=== PATIENT | female | born 1970 | race Caucasian/White ===

== ENCOUNTER 2017-12-18 00:58 | Inpatient (IN) | payer BC ==
[2017-12-18 01:13] LABS: URINE HCG POC HCG NEGATIVE (Negative)
[2017-12-18 01:22] LABS: BILIRUBIN,URINE LARGE (NEG); CLARITY,URINE TURBID; COLOR,URINE RED; GLUCOSE,URINE 100 mg/dL (NEG); NITRITE,URINE POSITIVE (NEG); PROTEIN,URINE 100 mg/dL (NEG-TRACE)
[2017-12-18 01:31] LABS: BACTERIA,URINE MANY /HPF (0-FEW); RBC,URINE TNTC /HPF (0-2); SQUAMOUS EPITHELIAL CELL,UR MOD /LPF
[2017-12-18 01:48] LABS: ADD MAN DIFF? NO
[2017-12-18] MEDS ORDERED: KETOROLAC 30 MG/ML INJ. (01:51)
[2017-12-18 01:56] LABS: BASO # 0.1 x10^3/uL (0.0-0.2); BASO % 1 % (0-3); EOS # 0.3 x10^3/uL (0.0-0.7); EOS % 4 % (0-3); HEMATOCRIT 40.1 % (36.0-47.0); HEMOGLOBIN 14.2 g/dL (12.0-15.5); LYMPH # 4.4 x10^3/uL (1.0-4.8); LYMPH % 50 % (24-48); MEAN CORPUSCULAR HEMOGLOBIN 34 pg (25-35); MEAN CORPUSCULAR HGB CONC 35 g/dL (31-37); MEAN CORPUSCULAR VOLUME 97 fL (79-100); MONO # 0.6 x10^3/uL (0.0-1.1); MONO % 7 % (0-9); NEUT # 3.4 x10^3uL (1.8-7.7); NEUT % 39 % (31-73); PLATELET COUNT 237 x10^3/uL (140-400); RED BLOOD COUNT 4.15 x10^6/uL (3.50-5.40); RED CELL DISTRIBUTION WIDTH 13.4 % (11.5-14.5); WHITE BLOOD COUNT 8.8 x10^3/uL (4.0-11.0)
[2017-12-18 01:58] LABS: ANION GAP 12 (6-14); BLOOD UREA NITROGEN 15 mg/dL (7-20); CALCIUM 9.3 mg/dL (8.5-10.1); CARBON DIOXIDE 25 mmol/L (21-32); CHLORIDE 103 mmol/L (98-107); CREATININE 0.8 mg/dL (0.6-1.0); GFR 77.6; GLUCOSE 191 mg/dL (70-99); POTASSIUM 4.2 mmol/L (3.5-5.1); SODIUM 140 mmol/L (136-145)
[2017-12-18] MEDS: KETOROLAC 30 MG/ML INJ. IV (01:58)
[2017-12-18] MEDS: IV NORMAL SALINE 1000ML BAG 1,000 ML IV ×2 (01:58→04:30)
[2017-12-18] MEDS: MORPHINE SULFATE 4 MG/ML DISP.SYRIN. IV ×7 (03:15→23:08)
[2017-12-18] MEDS: TAMSULOSIN 0.4 MG CAP.ER.24H. PO (04:28)
[2017-12-18] MEDS: ONDANSETRON PF 4 MG/2 ML VIAL. IV ×2 (04:29→23:10)
[2017-12-18] MEDS: ACETAMINOPHEN 325 MG TABLET. PO ×2 (10:19→20:40)
[2017-12-18] MEDS: HYDROcodone/APAP 5/325MG 1 TAB TABLET PO ×2 (13:09→18:30)
[2017-12-18] MEDS: CHOLECALCIFEROL (VITAMIN D3) 1,000 UNIT TABLET PO (13:09)
[2017-12-18] MEDS ORDERED: DEXTROSE 50% 25 GM / 50ML DISP.SYRIN. IV (13:15)
[2017-12-18 16:58] LABS: POC GLUCOSE 78 mg/dL (70-99)
[2017-12-18] MEDS: INSULIN LISPRO 300 UNITS/3 ML INSULN.PEN. SQ (17:00)
[2017-12-18] MEDS: LACTOBACILLUS RHAMNOSUS GG 1 CAPSULE. PO (20:36)
[2017-12-18] MEDS: ZOLPIDEM 5 MG TABLET. PO (20:36)
[2017-12-18 21:53] LABS: POC GLUCOSE 83 mg/dL (70-99)
[2017-12-19] MEDS: HYDROcodone/APAP 5/325MG 1 TAB TABLET PO (03:02)
[2017-12-19] MEDS ORDERED: NON FORMULARY ITEM (Albuterol Sulfate (Albuterol Sulfate Conc Neb Soln) 1 VIAL) NEB (03:15)
[2017-12-19] MEDS ORDERED: ALBUTEROL SULFATE 2.5 MG/3 ML NEBU. NEB (03:30)
[2017-12-19 04:23] LABS: ADD MAN DIFF? NO
[2017-12-19 04:30] LABS: BASO % 1 % (0-3); EOS # 0.3 x10^3/uL (0.0-0.7); EOS % 4 % (0-3); HEMATOCRIT 35.6 % (36.0-47.0); HEMOGLOBIN 12.8 g/dL (12.0-15.5); LYMPH # 3.2 x10^3/uL (1.0-4.8); LYMPH % 43 % (24-48); MEAN CORPUSCULAR HEMOGLOBIN 35 pg (25-35); MEAN CORPUSCULAR HGB CONC 36 g/dL (31-37); MEAN CORPUSCULAR VOLUME 96 fL (79-100); MONO # 0.7 x10^3/uL (0.0-1.1); MONO % 9 % (0-9); NEUT # 3.3 x10^3uL (1.8-7.7); NEUT % 44 % (31-73); PLATELET COUNT 192 x10^3/uL (140-400); RED BLOOD COUNT 3.69 x10^6/uL (3.50-5.40); RED CELL DISTRIBUTION WIDTH 13.4 % (11.5-14.5); WHITE BLOOD COUNT 7.6 x10^3/uL (4.0-11.0)
[2017-12-19 04:54] LABS: ALBUMIN 3.2 g/dL (3.4-5.0); ALK PHOS 42 U/L (46-116); ALT (SGPT) 37 U/L (14-59); ANION GAP 10 (6-14); AST (SGOT) 36 U/L (15-37); BLOOD UREA NITROGEN 11 mg/dL (7-20); BUN/CREATININE RATIO 16 (6-20); CALCIUM 8.2 mg/dL (8.5-10.1); CARBON DIOXIDE 26 mmol/L (21-32); CHLORIDE 103 mmol/L (98-107); CREATININE 0.7 mg/dL (0.6-1.0); GFR 90.5; GLUCOSE 101 mg/dL (70-99); POTASSIUM 3.6 mmol/L (3.5-5.1); SODIUM 139 mmol/L (136-145); TOTAL BILIRUBIN 0.6 mg/dL (0.2-1.0); TOTAL PROTEIN 6.4 g/dL (6.4-8.2)
[2017-12-19] MEDS: cefTRIAXone IV Push 1 GM VIAL. IVP (05:15)
[2017-12-19] MEDS: ACETAMINOPHEN 325 MG TABLET. PO (05:26)
[2017-12-19] MEDS ORDERED: ONDANSETRON PF 4 MG/2 ML VIAL. IV (05:30)
[2017-12-19 07:46] LABS: POC GLUCOSE 100 mg/dL (70-99)
[2017-12-19] MEDS: INSULIN LISPRO 300 UNITS/3 ML INSULN.PEN. SQ (08:00)
[2017-12-19] MEDS: CHOLECALCIFEROL (VITAMIN D3) 1,000 UNIT TABLET PO (08:19)
[2017-12-19] MEDS: LACTOBACILLUS RHAMNOSUS GG 1 CAPSULE. PO (08:19)
== END 2017-12-19 11:52 | disposition home or self-care (01) | DRG 694 ==
LOC: ER 00:58 → 4 NORTH 04:15
DX: N13.2 Hydronephrosis with renal and ureteral calculous obstruction (principal); Z68.42 Body mass index [BMI] 45.0-49.9, adult; K50.90 Crohn's disease, unspecified, without complications; M35.2 Behcet's disease; E03.9 Hypothyroidism, unspecified; N39.0 Urinary tract infection, site not specified; J45.909 Unspecified asthma, uncomplicated; K21.9 Gastro-esophageal reflux disease without esophagitis; F41.9 Anxiety disorder, unspecified; E66.01 Morbid (severe) obesity due to excess calories; E11.42 Type 2 diabetes mellitus with diabetic polyneuropathy; E28.2 Polycystic ovarian syndrome; M54.5 Low back pain; Z83.3 Family history of diabetes mellitus; Z87.11 Personal history of peptic ulcer disease; Z87.442 Personal history of urinary calculi; Z88.5 Allergy status to narcotic agent; Z88.8 Allergy status to other drugs, medicaments and biological substances; Z88.1 Allergy status to other antibiotic agents; Z91.040 Latex allergy status; Z86.2 Personal history of diseases of the blood and blood-forming organs and certain disorders involving the immune mechanism; Z80.9 Family history of malignant neoplasm, unspecified
CPT/HCPCS: 36415; 74018; 74176; 80048; 80053; 81001; 81025; 82962; 85025; 87086; 94640; 96361; 96365; 99285-25; J0690; J0696; J1815; J1885; J2270; J2405; J7030

== ENCOUNTER 2018-09-06 09:21 | Emergency (ER) | payer BC ==
[~2018-09-06] VITALS: Ht 154.9 cm; Wt 122.5 kg
[~2018-09-06 09:21] MED LIST: ADAL40PE SQ; ALBU2.5V14 NEB; ALBU2.5V5 NEB; AZAT50TA PO; AZAT50TA20 PO; CHOL10003 PO; DOCU-109 PO; ESZO3TAB28 PO; HYDR-2769 PO; HYDR-3164 PO; LEVO500T59 PO; LIDO20SO PO; LIDO20VI IJ; MULT9LIQ6 PO; PANT40TA3 PO; PANT40TA5 PO; PRED-220 PO; PRED1TAB3 PO; PRED2.5T PO; PRED20TA PO; SUCR1TAB35 PO; ZOLP5TAB PO; ZOLP5TAB5 PO
[2018-09-06] MEDS ORDERED: MORPHINE SULFATE 4 MG/ML VIAL. IV ONE (10:15)
[2018-09-06] MEDS ORDERED: ONDANSETRON PF 4 MG/2 ML VIAL. IV ONE (10:15)
[2018-09-06 10:32] LABS: BILIRUBIN,URINE NEGATIVE (NEG); CLARITY,URINE CLEAR; COLOR,URINE YELLOW; NITRITE,URINE NEGATIVE (NEG); PROTEIN,URINE NEGATIVE (NEG-TRACE); UROBILINOGEN,URINE 0.2 mg/dL (0.2 mg/dL)
[2018-09-06 10:40] LABS: BASO # 0.1 x10^3/uL (0.0-0.2); BASO % 1 % (0-3); EOS # 0.3 x10^3/uL (0.0-0.7); EOS % 4 % (0-3); HEMATOCRIT 39.3 % (36.0-47.0); HEMOGLOBIN 13.8 g/dL (12.0-15.5); LYMPH # 3.4 x10^3/uL (1.0-4.8); LYMPH % 47 % (24-48); MEAN CORPUSCULAR HEMOGLOBIN 35 pg (25-35); MEAN CORPUSCULAR HGB CONC 35 g/dL (31-37); MEAN CORPUSCULAR VOLUME 98 fL (79-100); MONO # 0.6 x10^3/uL (0.0-1.1); MONO % 8 % (0-9); NEUT % 41 % (31-73); PLATELET COUNT 177 x10^3/uL (140-400); RED BLOOD COUNT 3.99 x10^6/uL (3.50-5.40); RED CELL DISTRIBUTION WIDTH 13.1 % (11.5-14.5); WHITE BLOOD COUNT 7.3 x10^3/uL (4.0-11.0)
[2018-09-06 10:43] LABS: CALCIUM 8.8 mg/dL (8.5-10.1); CREATININE 0.5 mg/dL (0.6-1.0); GFR 132.8; POTASSIUM 3.9 mmol/L (3.5-5.1)
[2018-09-06 10:48] LABS: ALBUMIN 3.8 g/dL (3.4-5.0); ALBUMIN/GLOBULIN RATIO 1.2 (1.0-1.7); TOTAL BILIRUBIN 0.4 mg/dL (0.2-1.0); TOTAL PROTEIN 7.1 g/dL (6.4-8.2)
[2018-09-06 10:58] LABS: SQUAMOUS EPITHELIAL CELL,UR MANY /LPF
[2018-09-06 10:59] LABS: BACTERIA,URINE MOD /HPF (0-FEW); RBC,URINE 0 /HPF (0-2)
--- NOTE | 2018-09-06 11:00 | PHYS DOC ---
Past Medical History Past Medical History: Asthma, Other Additional Past Medical Histor: Behcet's DISEASE, crohn's Past Surgical History: Other Additional Past Surgical Histo: TUBES IN EARS, KNEE Alcohol Use: Rarely Drug Use: None Adult General Chief Complaint Chief Complaint: FLANK PAIN HPI HPI Patient is a 48 year old feeling presents the ER for evaluation of hematuria and right flank pain. Patient with history of Behcet's disease. Reports frequent kidney stones over the past few months. Has also had some associated urinary tract infections. Reports some chronic right flank pain that is intermittent but increased over the last 24-48 hours. Reports understanding hematuria this morning. Subjective fever last night. No nausea, no vomiting, no diarrhea, no GI bleed symptoms. Has some chronic joint pain related to her Behcet's. Pain is constant, 6 out of 10, questionably positional, no other aggravating or alleviating factors. Review of Systems Review of Systems Constitutional: Denies fever or chills [] Eyes: Denies change in visual acuity, redness, or eye pain [] HENT: Denies nasal congestion or sore throat [] Respiratory: Denies cough or shortness of breath [] Cardiovascular: No additional information not addressed in HPI [] GI: Denies abdominal pain, nausea, vomiting, bloody stools or diarrhea [] : Denies dysuria or hematuria [] Musculoskeletal: Denies back pain or joint pain [] Integument: Denies rash or skin lesions [] Neurologic: Denies headache, focal weakness or sensory changes [] Endocrine: Denies polyuria or polydipsia [] All other systems were reviewed and found to be within normal limits, except as documented in this note. Current Medications Current Medications Current Medications Medications (Trade) Dose Ordered Sig/[place] Start Time Stop Time Status Last Admin Dose Admin Cephalexin HCl (Keflex) 500 mg 1X STAT 09/06/18 13:41 09/06/18 13:46 DC Morphine Sulfate (Morphine Sulfate) 4 mg 1X ONCE 09/06/18 10:15 09/06/18 10:16 DC 09/06/18 10:30 4 MG Ondansetron HCl (Zofran) 8 mg 1X ONCE 09/06/18 10:15 09/06/18 10:16 DC 09/06/18 10:22 8 MG Allergies Allergies Allergies Coded Allergies Type Severity Reaction Last Updated Verified meropenem Allergy Severe skin blisters 03/19/15 Yes Iodine and Iodide Containing Produc Allergy Intermediate 02/26/15 Yes erythromycin base Allergy Intermediate SEE COMMENT 02/18/15 Yes lactose Allergy Intermediate 02/25/15 Yes Physical Exam Physical Exam Constitutional: Obese, appears mildly uncomfortable. HENT: Normocephalic, atraumatic, Eyes: PERRLA, EOMI, Neck: Normal range of motion, no tenderness, supple, no stridor. [] Cardiovascular:Heart rate regular rhythm, no murmur [] Lungs & Thorax: Bilateral breath sounds clear to auscultation [] Abdomen: Exam limited by body habitus, soft, mild periumbilical tenderness, no guarding, no rebound tenderness. Skin: Warm, dry, no erythema, no rash. [] Back: Moderate right paraspinal tenderness in approximate T8 through T12 region , no CVA tenderness.. [] Extremities: No tenderness, no cyanosis, no clubbing, ROM intact, no edema. [] Neurologic: Alert and oriented X 3, no focal deficits noted. [] Psychologic: Affect normal, judgement normal, mood normal. [] Current Patient Data Vital Signs Vital Signs Date Time Temp Pulse Resp B/P (MAP) Pulse Ox O2 Delivery O2 Flow Rate FiO2 09/06/18 13:30 78 20 134/68 (90) 95 Room Air 09/06/18 09:45 97.6 97.6 Lab Values Laboratory Tests Test 09/06/18 09:40 09/06/18 10:10 09/06/18 11:20 Urine Collection Type Unknown Unknown Urine Color Yellow Yellow Urine Clarity Clear Clear Urine pH 5.0 5.0 Urine Specific [place] >=1.030 >=1.030 Urine Protein Negative mg/dL (NEG-TRACE) Negative mg/dL (NEG-TRACE) Urine Glucose (UA) Negative mg/dL (NEG) Negative mg/dL (NEG) Urine Ketones (Stick) Negative mg/dL (NEG) Negative mg/dL (NEG) Urine Blood Small (NEG) Negative (NEG) Urine Nitrite Negative (NEG) Negative (NEG) Urine Bilirubin Negative (NEG) Small (NEG) Urine Urobilinogen Dipstick 0.2 mg/dL (0.2 mg/dL) 0.2 mg/dL (0.2 mg/dL) Urine Leukocyte Esterase Negative (NEG) Negative (NEG) Urine RBC 0 /HPF (0-2) Occ /HPF (0-2) Urine WBC 1-4 /HPF (0-4) Occ /HPF (0-4) Urine Squamous Epithelial Cells Many /LPF Mod /LPF Urine Bacteria Mod /HPF (0-FEW) 0 /HPF (0-FEW) Urine Mucus Mod /LPF Mod /LPF White Blood Count 7.3 x10^3/uL (4.0-11.0) Red Blood Count 3.99 x10^6/uL (3.50-5.40) Hemoglobin 13.8 g/dL (12.0-15.5) Hematocrit 39.3 % (36.0-47.0) Mean Corpuscular Volume 98 fL (79-100) Mean Corpuscular Hemoglobin 35 pg (25-35) Mean Corpuscular Hemoglobin Concent 35 g/dL (31-37) Red Cell Distribution Width 13.1 % (11.5-14.5) Platelet Count 177 x10^3/uL (140-400) Neutrophils (%) (Auto) 41 % (31-73) Lymphocytes (%) (Auto) 47 % (24-48) Monocytes (%) (Auto) 8 % (0-9) Eosinophils (%) (Auto) 4 % (0-3) H Basophils (%) (Auto) 1 % (0-3) Neutrophils # (Auto) 3.0 x10^3uL (1.8-7.7) Lymphocytes # (Auto) 3.4 x10^3/uL (1.0-4.8) Monocytes # (Auto) 0.6 x10^3/uL (0.0-1.1) Eosinophils # (Auto) 0.3 x10^3/uL (0.0-0.7) Basophils # (Auto) 0.1 x10^3/uL (0.0-0.2) Sodium Level 141 mmol/L (136-145) Potassium Level 3.9 mmol/L (3.5-5.1) Chloride Level 103 mmol/L (98-107) Carbon Dioxide Level 27 mmol/L (21-32) Anion Gap 11 (6-14) Blood Urea Nitrogen 12 mg/dL (7-20) Creatinine 0.5 mg/dL (0.6-1.0) L Estimated GFR (Cockcroft-Gault) 132.8 BUN/Creatinine Ratio 24 (6-20) H Glucose Level 124 mg/dL (70-99) H Calcium Level 8.8 mg/dL (8.5-10.1) Total Bilirubin 0.4 mg/dL (0.2-1.0) Aspartate Amino Transferase (AST) 54 U/L (15-37) H Alanine Aminotransferase (ALT) 71 U/L (14-59) H Alkaline Phosphatase 44 U/L (46-116) L Total Protein 7.1 g/dL (6.4-8.2) Albumin 3.8 g/dL (3.4-5.0) Albumin/Globulin Ratio 1.2 (1.0-1.7) Lipase 123 U/L (73-393) Urine Amorphous Sediment Present /HPF Laboratory Tests 09/06/18 10:10 Laboratory Tests 09/06/18 10:10 EKG EKG [] Radiology/Procedures Radiology/Procedures CT ABD/pelvis Impression: Right adnexal follicle is physiologic in appearance. Small hiatal hernia. Nonobstructive right renal calculi. No collecting system obstruction. Diverticulosis. PQRS Compliance Statement: One or more of the following individualized dose reduction techniques were utilized for this examination: 1. Automated exposure control 2. Adjustment of the mA and/or kV according to patient size 3. Use of iterative reconstruction technique Electronically signed by: Everett Romero MD (09/06/2018 12:33 PM) [id number][] Course & Med Decision Making Course & Med Decision Making Pertinent Labs and Imaging studies reviewed. (See chart for details) []1340: Feeling better. Pain controlled. Initial urine sample was grossly contaminated. Repeat was a catheter specimen but due to allergies to Betadine was difficult to obtain a very clean specimen was also contaminated. Unclear if patient is having a urinary tract infection versus pyelonephritis. There are no obvious ureter stones with obstruction on the CAT scan. Will cover patient with a ten-day course of Keflex. Patient has pain medication to take at home. She is comfortable with plan for discharge. Advised completion of antibiotic course. ER return precautions given. Patient verbalized understanding. All questions answered. Dragon Disclaimer Dragon Disclaimer This electronic medical record was generated, in whole or in part, using a voice recognition dictation system. Departure Departure Impression: Primary Impression: Kidney stone Additional Impressions: Right flank pain Pyelonephritis Disposition: 01 HOME, SELF-CARE Condition: IMPROVED Referrals: KEILA HILTON (PCP) Patient Instructions: Pyelonephritis, Adult Additional Instructions: Thank you for coming to [facility]. Please read the attached handouts. Please follow-up with your primary care physician. Return to the ER if your symptoms worsen or you have any other concerns. Home medications. Take the entire course of antibiotics as prescribed. Scripts Cephalexin (KEFLEX) 500 Mg Capsule 1 CAP PO BID, #20 CAP Prov: SKYE HDEZ DO 09/06/18 Ciprofloxacin Hcl (CIPROFLOXACIN HCL) 500 Mg Tablet 1 TAB PO BID, #14 TAB Prov: SKYE HDEZ DO 09/06/18 Problem Qualifiers SKYE HDEZ DO Sep 06, 2018 11:00
[2018-09-06 11:32] LABS: BILIRUBIN,URINE SMALL (NEG); CLARITY,URINE CLEAR; COLOR,URINE YELLOW; NITRITE,URINE NEGATIVE (NEG); PROTEIN,URINE NEGATIVE (NEG-TRACE); UROBILINOGEN,URINE 0.2 mg/dL (0.2 mg/dL)
[2018-09-06 11:45] LABS: SQUAMOUS EPITHELIAL CELL,UR MOD /LPF
[2018-09-06 11:46] LABS: AMORPHOUS SEDIMENT,UR PRESENT /HPF; BACTERIA,URINE 0 /HPF (0-FEW); RBC,URINE OCC /HPF (0-2); WBC,URINE OCC /HPF (0-4)
--- NOTE | 2018-09-06 12:36 | RAD ---
Examination: CT ABDOMEN PELVIS WO CONTRAST History: RT FLANK PAIN, PRIOR SENT Comparison/Correlation: 11/18/2017 CT abdomen and pelvis without contrast Findings: Axial images of the abdomen and pelvis were obtained without contrast. Sagittal and coronal reformatted images were provided. Visualized lung bases are clear. Diffuse fatty infiltration of the liver with small regions of sparing noted. Small hiatal hernia is present. Spleen, pancreas, and adrenal glands are normal. Diverticulosis of the colon is present without findings of acute inflammation. Appendix is normal. Right renal lower pole calyceal calculus measuring 0.7 cm diameter is present. Punctate right renal lower pole calyceal calculus is also present. No radiopaque left renal cocci. No ureteral distention. Urinary bladder is mostly decompressed without radiopaque calculus involvement noted. No ascites or pelvic free fluid. No enlarged abdominal or pelvic lymph nodes. Umbilical hernia contains omental fat. Mild spurring at L4 S5 partially noted. Mild disc space narrowing is evident. Sacralization of the L5 vertebra noted. Right adnexal follicle measuring 2 cm diameter is present. It is physiologic in appearance. Uterus is unremarkable. Impression: Right adnexal follicle is physiologic in appearance. Small hiatal hernia. Nonobstructive right renal calculi. No collecting system obstruction. Diverticulosis. PQRS Compliance Statement: One or more of the following individualized dose reduction techniques were utilized for this examination: 1. Automated exposure control 2. Adjustment of the mA and/or kV according to patient size 3. Use of iterative reconstruction technique Electronically signed by: Everett Romero MD (09/06/2018 12:33 PM) [id number]
[2018-09-06 13:30] VITALS: BP 134/68
[2018-09-06] MEDS ORDERED: CIPR500T PO (13:40)
[2018-09-06] MEDS ORDERED: CEPH-264 PO (13:40)
[2018-09-06] MEDS ORDERED: CEPHALEXIN 250 MG CAPSULE. PO STA (13:41)
== END 2018-09-06 14:00 | disposition home or self-care (01) ==
LOC: ER 09:21
DX: N20.0 Calculus of kidney (principal); G89.29 Other chronic pain; K44.9 Diaphragmatic hernia without obstruction or gangrene; K57.30 Diverticulosis of large intestine without perforation or abscess without bleeding; J45.909 Unspecified asthma, uncomplicated; Z91.041 Radiographic dye allergy status; Z88.1 Allergy status to other antibiotic agents; Z91.011 Allergy to milk products; Z88.8 Allergy status to other drugs, medicaments and biological substances
CPT/HCPCS: 36415; 74176; 80053; 81001; 83690; 85025; 96374; 96375; 99285; J2270; J2405

== ENCOUNTER 2018-11-13 03:42 | Emergency (ER) | payer BC ==
[~2018-11-13] VITALS: Ht 154.9 cm; Wt 118.8 kg
[~2018-11-13 03:42] MED LIST changes: +CEPH-264 PO; +CIPR500T PO
[2018-11-13 04:25] LABS: BASO # 0.1 x10^3/uL (0.0-0.2); BASO % 1 % (0-3); EOS # 0.4 x10^3/uL (0.0-0.7); EOS % 4 % (0-3); HEMATOCRIT 37.8 % (36.0-47.0); HEMOGLOBIN 13.3 g/dL (12.0-15.5); LYMPH # 3.8 x10^3/uL (1.0-4.8); LYMPH % 37 % (24-48); MEAN CORPUSCULAR HEMOGLOBIN 34 pg (25-35); MEAN CORPUSCULAR HGB CONC 35 g/dL (31-37); MEAN CORPUSCULAR VOLUME 96 fL (79-100); MONO # 0.9 x10^3/uL (0.0-1.1); MONO % 9 % (0-9); NEUT % 49 % (31-73); PLATELET COUNT 182 x10^3/uL (140-400); RED BLOOD COUNT 3.93 x10^6/uL (3.50-5.40); WHITE BLOOD COUNT 10.3 x10^3/uL (4.0-11.0)
[2018-11-13 04:43] LABS: CALCIUM 9.3 mg/dL (8.5-10.1); CREATININE 0.6 mg/dL (0.6-1.0); GFR 107.6; POTASSIUM 3.9 mmol/L (3.5-5.1)
[2018-11-13] MEDS ORDERED: IPRATRPIUM/ALBUTEROL 0.5/2.5MG 3 ML NEBU. NEB ONE (04:45)
[2018-11-13] MEDS ORDERED: methylPREDNISolone SOD SUCC PF 125 MG/2 ML VIAL. IV ONE (04:45)
[2018-11-13 04:49] LABS: ALBUMIN 3.5 g/dL (3.4-5.0); TOTAL BILIRUBIN 0.3 mg/dL (0.2-1.0)
[2018-11-13] MEDS ORDERED: cefTRIAXone IV Push 1 GM VIAL. IVP ONE (06:00)
[2018-11-13] MEDS ORDERED: IV NORMAL SALINE 1000ML BAG 1,000 ML IV ONE (06:00)
[2018-11-13 06:02] LABS: BILIRUBIN,URINE NEGATIVE (NEG); CLARITY,URINE CLEAR; COLOR,URINE YELLOW; NITRITE,URINE NEGATIVE (NEG); PH,URINE 5.5; PROTEIN,URINE NEGATIVE (NEG-TRACE); UROBILINOGEN,URINE 0.2 mg/dL (0.2 mg/dL)
[2018-11-13 06:13] LABS: BACTERIA,URINE FEW /HPF (0-FEW); RBC,URINE OCC /HPF (0-2); SQUAMOUS EPITHELIAL CELL,UR FEW /LPF
--- NOTE | 2018-11-13 06:13 | PHYS DOC ---
Past Medical History Past Medical History: Asthma, Other Additional Past Medical Histor: Behcet's DISEASE, crohn's (MARICARMEN HERNANDEZ MD) Past Surgical History: Other Additional Past Surgical Histo: TUBES IN EARS, KNEE (MARICARMEN HERNANDEZ MD) Alcohol Use: Rarely Drug Use: None (MARICARMEN HERNANDEZ MD) Adult General Chief Complaint Chief Complaint: DIFFICULTY SWALLOWING HPI HPI Patient is a 48 year old female who presents with complaining of sore throat and shortness of breath. Patient complaining of gradual onset of sore throat and earache and shortness of breath for the last few days with chills and generalized weakness. Patient denies fever, neck pain, nausea and vomiting, sick contact, productive cough, chest pain. (MARICARMEN HERNANDEZ MD) Review of Systems Review of Systems Constitutional: Denies fever, reports chills [] Eyes: Denies change in visual acuity, redness, or eye pain [] HENT: Denies nasal congestion, reports sore throat and nasal congestion Respiratory: Reports cough and shortness of breath Cardiovascular: No additional information not addressed in HPI [] GI: Denies abdominal pain, nausea, vomiting, bloody stools or diarrhea [] : Denies dysuria or hematuria [] Musculoskeletal: Denies back pain or joint pain [] Integument: Denies rash or skin lesions [] Neurologic: Denies headache, focal weakness or sensory changes [] Endocrine: Denies polyuria or polydipsia [] All other systems were reviewed and found to be within normal limits, except as documented in this note. (MARICARMEN HERNANDEZ MD) Current Medications Current Medications Current Medications Medications (Trade) Dose Ordered Sig/[place] Start Time Stop Time Status Last Admin Dose Admin Albuterol/ Ipratropium (Duoneb) 3 ml 1X ONCE 11/13/18 04:45 11/13/18 04:46 DC 11/13/18 05:07 3 ML Ceftriaxone Sodium (Rocephin) 1 gm 1X ONCE 11/13/18 06:00 11/13/18 06:01 DC 11/13/18 06:00 1 GM Methylprednisolone Sodium Succinate (SOLU-Medrol 125MG VIAL) 125 mg 1X ONCE 11/13/18 04:45 11/13/18 04:46 DC 11/13/18 04:51 125 MG Sodium Chloride 1,000 ml @ 1,000 mls/hr 1X ONCE 11/13/18 06:00 11/13/18 06:59 DC 11/13/18 06:11 1,000 MLS/HR (JD HOUSTON DO) Allergies Allergies Allergies Coded Allergies Type Severity Reaction Last Updated Verified meropenem Allergy Severe skin blisters 03/19/15 Yes Iodine and Iodide Containing Produc Allergy Intermediate 02/26/15 Yes erythromycin base Allergy Intermediate SEE COMMENT 02/18/15 Yes lactose Allergy Intermediate 02/25/15 Yes (JD HOUSTON DO) Physical Exam Physical Exam Constitutional: Well developed, well nourished, mild distress, non-toxic appearance. [] HENT: Normocephalic, atraumatic, bilateral external ears normal, oropharynx moist, no oral exudates, nose normal. [] Eyes: PERRLA, EOMI, conjunctiva normal, no discharge. [] Neck: Normal range of motion, no tenderness, supple, no stridor. [] Cardiovascular:Heart rate regular rhythm, no murmur [] Lungs & Thorax: Bilateral breath sounds clear to auscultation [] Abdomen: Bowel sounds normal, soft, no tenderness, no masses, no pulsatile masses. [] Skin: Warm, dry, no erythema, no rash. [] Back: No tenderness, no CVA tenderness. [] Extremities: No tenderness, no cyanosis, no clubbing, ROM intact, no edema. [] Neurologic: Alert and oriented X 3, normal motor function, normal sensory function, no focal deficits noted. [] Psychologic: Affect normal, judgement normal, mood normal. [] (MARICARMEN HERNANDEZ MD) Current Patient Data Vital Signs Vital Signs Date Time Temp Pulse Resp B/P (MAP) Pulse Ox O2 Delivery O2 Flow Rate FiO2 11/13/18 06:25 91 16 151/91 (111) 95 Room Air 11/13/18 04:10 97.8 97.8 (JD HOUSTON DO) Lab Values Laboratory Tests Test 11/13/18 03:50 11/13/18 04:01 11/13/18 04:05 11/13/18 04:43 Urine Collection Type Unknown Urine Color Yellow Urine Clarity Clear Urine pH 5.5 Urine Specific [place] 1.025 Urine Protein Negative mg/dL (NEG-TRACE) Urine Glucose (UA) Negative mg/dL (NEG) Urine Ketones (Stick) Negative mg/dL (NEG) Urine Blood Negative (NEG) Urine Nitrite Negative (NEG) Urine Bilirubin Negative (NEG) Urine Urobilinogen Dipstick 0.2 mg/dL (0.2 mg/dL) Urine Leukocyte Esterase Negative (NEG) Urine RBC Occ /HPF (0-2) Urine WBC 1-4 /HPF (0-4) Urine Squamous Epithelial Cells Few /LPF Urine Bacteria Few /HPF (0-FEW) POC Urine HCG, Qualitative Hcg negative (Negative) White Blood Count 10.3 x10^3/uL (4.0-11.0) Red Blood Count 3.93 x10^6/uL (3.50-5.40) Hemoglobin 13.3 g/dL (12.0-15.5) Hematocrit 37.8 % (36.0-47.0) Mean Corpuscular Volume 96 fL (79-100) Mean Corpuscular Hemoglobin 34 pg (25-35) Mean Corpuscular Hemoglobin Concent 35 g/dL (31-37) Red Cell Distribution Width 13.0 % (11.5-14.5) Platelet Count 182 x10^3/uL (140-400) Neutrophils (%) (Auto) 49 % (31-73) Lymphocytes (%) (Auto) 37 % (24-48) Monocytes (%) (Auto) 9 % (0-9) Eosinophils (%) (Auto) 4 % (0-3) H Basophils (%) (Auto) 1 % (0-3) Neutrophils # (Auto) 5.0 x10^3uL (1.8-7.7) Lymphocytes # (Auto) 3.8 x10^3/uL (1.0-4.8) Monocytes # (Auto) 0.9 x10^3/uL (0.0-1.1) Eosinophils # (Auto) 0.4 x10^3/uL (0.0-0.7) Basophils # (Auto) 0.1 x10^3/uL (0.0-0.2) Sodium Level 137 mmol/L (136-145) Potassium Level 3.9 mmol/L (3.5-5.1) Chloride Level 100 mmol/L (98-107) Carbon Dioxide Level 25 mmol/L (21-32) Anion Gap 12 (6-14) Blood Urea Nitrogen 10 mg/dL (7-20) Creatinine 0.6 mg/dL (0.6-1.0) Estimated GFR (Cockcroft-Gault) 107.6 BUN/Creatinine Ratio 17 (6-20) Glucose Level 165 mg/dL (70-99) H Calcium Level 9.3 mg/dL (8.5-10.1) Total Bilirubin 0.3 mg/dL (0.2-1.0) Aspartate Amino Transferase (AST) 24 U/L (15-37) Alanine Aminotransferase (ALT) 38 U/L (14-59) Alkaline Phosphatase 50 U/L (46-116) Creatine Kinase 122 U/L (26-192) Troponin I Quantitative < 0.017 ng/mL (0.000-0.055) KX-Kbs-P-Type Natriuretic Peptide 30 pg/mL (0-124) Total Protein 7.0 g/dL (6.4-8.2) Albumin 3.5 g/dL (3.4-5.0) Albumin/Globulin Ratio 1.0 (1.0-1.7) Lactic Acid Level 2.7 mmol/L (0.4-2.0) H Group A Streptococcus Rapid Negative (NEGATIVE) Test 11/13/18 07:03 Lactic Acid Level 3.1 mmol/L (0.4-2.0) H Laboratory Tests 11/13/18 04:05 Laboratory Tests 11/13/18 04:05 (JD HOUSTON DO) EKG EKG [] (MARICARMEN HERNANDEZ MD) Radiology/Procedures Radiology/Procedures [] (MARICARMEN HERNANDEZ MD) Course & Med Decision Making Course & Med Decision Making Pertinent Labs and Imaging studies reviewed. (See chart for details) Evaluation of patient in ER showed 48-year-old female patient with history of as thma and complaining of URI symptoms. Patient had unremarkable physical exam and labs except for lactic acid of 2.7. Plan to repeat lactic acid in his normal discharge patient home. Sign out given to at 0600 for further evaluation and final disposition. Discussed current findings and plan with patient and family, who acknowledge understanding and agreement. (MARICARMEN HERNANDEZ MD) Course & Med Decision Making ED course: Evaluation reveals 48-year-old female with some URI symptoms. She was afebrile. She had a elevated lactic acid here however I don't think that this was related at all to sepsis. She was given IV fluids and felt much better duri ng her stay and wants to go home. I think she is safe to do so. I will start her on antibiotics as an outpatient. I've encouraged her to continue to push fluids at home. (JD HOUSTON DO) Dragon Disclaimer Dragon Disclaimer This electronic medical record was generated, in whole or in part, using a voice recognition dictation system. (MARICARMEN HERNANDEZ MD) Departure Departure Impression: Primary Impression: URI (upper respiratory infection) Disposition: 01 HOME, SELF-CARE Condition: IMPROVED Referrals: KEILA HILTON (PCP) Patient Instructions: Upper Respiratory Infection, Adult Additional Instructions: Follow with her primary care physician this week for recheck. Return him or sperm with any new or concerning symptoms Scripts Amoxicillin/Potassium Clav (AUGMENTIN 875-125 TABLET) 1 Each Tablet 1 TAB PO BID, #14 TAB Prov: JD HOUSTON DO 11/13/18 MARICARMEN HERNANDEZ MD Nov 13, 2018 06:13 JD HOUSTON DO Nov 13, 2018 08:47
--- NOTE | 2018-11-13 07:18 | EKG ---
[facility] [address] [place] [address] Test Date: 2018-11-13 Test Time: 04:43:09 Pat Name: APOLINAR MATHIS Department: Room: Gender: F President Practicing Urologist: : 1970 Requested By: MARICARMEN HERNANDEZ Order Number: [id number] Reading MD: Measurements Intervals [place] Rate: 94 P: 17 VA: 194 QRS: 27 QRSD: 78 T: 31 QT: 348 QTc: 441 Interpretive Statements SINUS RHYTHM NORMAL ECG RI6.01 Unconfirmed report No previous ECG available for comparison
--- NOTE | 2018-11-13 07:47 | RAD ---
EXAM: PA and Lateral Views of the Chest DATE: 11/13/2018 4:16 AM INDICATION: Shortness of breath COMPARISON: 01/26/2016 FINDINGS: Heart is mildly enlarged. Aorta is mildly tortuous. No lobar consolidation. Minimal patchy opacities right lung base, likely atelectasis. Mediastinal and hilar contours are stable. No pleural effusion or pneumothorax. IMPRESSION: Minimal patchy opacities right lung base likely atelectasis. Electronically signed by: Lorenzo Kaur MD (11/13/2018 7:44 AM) [facility]
[2018-11-13 08:25] VITALS: BP 171/106
[2018-11-13] MEDS ORDERED: AMOX1TAB61 PO (08:47)
== END 2018-11-13 08:57 | disposition home or self-care (01) ==
LOC: ER 03:42
DX: J06.9 Acute upper respiratory infection, unspecified (principal); R06.02 Shortness of breath; R53.1 Weakness; R05 Cough; J45.909 Unspecified asthma, uncomplicated; Z88.1 Allergy status to other antibiotic agents; Z88.8 Allergy status to other drugs, medicaments and biological substances; Z88.4 Allergy status to anesthetic agent; Z91.011 Allergy to milk products
CPT/HCPCS: 36415; 71046; 80053; 81001; 81025; 82550; 83605; 83880; 84484; 85025; 87040; 87070; 87205; 87880; 93005; 94640; 96374; 96375; 99285; J0696; J2930; J7030; J7620

== ENCOUNTER 2018-12-18 07:17 | Emergency (ER) | payer BC ==
[~2018-12-18] VITALS: Ht 154.9 cm; Wt 118.4 kg
[~2018-12-18 07:17] MED LIST changes: +AMOX1TAB61 PO; -PANT40TA3 PO; -PANT40TA5 PO; +PANT40TA77 PO
--- NOTE | 2018-12-18 07:32 | PHYS DOC ---
Past Medical History Past Medical History: Asthma, Other Additional Past Medical Histor: Behcet's DISEASE, crohn's Past Surgical History: Other Additional Past Surgical Histo: TUBES IN EARS, KNEE Alcohol Use: Rarely Drug Use: None Adult General Chief Complaint Chief Complaint: ABDOMINAL PAIN [facility] HPI Patient is a 48-year-old female with multiple medical problems including Crohn's disease and kidney stones. She states she was recently treated for diverticulitis with Cipro and Flagyl. She presents today with an acute onset of right lower quadrant pain. She had a CT scan done earlier this month which did show a 6 mm intra-renal stone. She has had some nausea associated with the pain. She is not taking any pain medicine at home to help with the pain. She describes the pain as at �10 out of 10 however while she sitting comfortably in the bed she states the pain is considerably less. She denies any gross hematuria. She does not think she's had any fever chills or sweats.[] Review of Systems Review of Systems Constitutional: Denies fever or chills [] Eyes: Denies change in visual acuity, redness, or eye pain [] HENT: Denies nasal congestion or sore throat [] Respiratory: Denies cough or shortness of breath [] Cardiovascular: No additional information not addressed in HPI [] GI: Per history of present illness[] : Denies dysuria or hematuria [] Musculoskeletal: Denies back pain or joint pain [] Integument: Denies rash or skin lesions [] Neurologic: Denies headache, focal weakness or sensory changes [] Endocrine: Denies polyuria or polydipsia [] All other systems were reviewed and found to be within normal limits, except as documented in this note. Current Medications Current Medications Current Medications Medications (Trade) Dose Ordered Sig/[place] Start Time Stop Time Status Last Admin Dose Admin Ketorolac Tromethamine (Toradol 30mg Vial) 30 mg 1X ONCE 12/18/18 07:45 12/18/18 07:46 DC 12/18/18 08:16 30 MG Ondansetron HCl (Zofran) 4 mg 1X ONCE 12/18/18 07:45 12/18/18 07:46 DC 12/18/18 08:16 4 MG Prednisone (Prednisone) 60 mg 1X ONCE 12/18/18 07:45 12/18/18 07:46 DC 12/18/18 08:17 60 MG Tamsulosin HCl (Flomax) 0.4 mg 1X ONCE 12/18/18 09:30 12/18/18 09:31 UNV Allergies Allergies Allergies Coded Allergies Type Severity Reaction Last Updated Verified meropenem Allergy Severe skin blisters 03/19/15 Yes Iodine and Iodide Containing Produc Allergy Intermediate 02/26/15 Yes erythromycin base Allergy Intermediate SEE COMMENT 02/18/15 Yes lactose Allergy Intermediate 02/25/15 Yes Physical Exam Physical Exam Constitutional: Well developed, well nourished, moderate distress, non-toxic appearance. [] HENT: Normocephalic, atraumatic, bilateral external ears normal, oropharynx moist, no oral exudates, nose normal. [] Eyes: PERRLA, EOMI, conjunctiva normal, no discharge. [] Neck: Normal range of motion, no tenderness, supple, no stridor. [] Cardiovascular:Heart rate regular rhythm, no murmur [] Lungs & Thorax: Bilateral breath sounds clear to auscultation [] Abdomen: Bowel sounds normal, soft, no tenderness, no masses, no pulsatile masses. [] Skin: Warm, dry, no erythema, no rash. [] Back: No tenderness, no CVA tenderness. [] Extremities: No tenderness, no cyanosis, no clubbing, ROM intact, no edema. [] Neurologic: Alert and oriented X 3, normal motor function, normal sensory function, no focal deficits noted. [] Psychologic: Anxious. [] Current Patient Data Vital Signs Vital Signs Date Time Temp Pulse Resp B/P (MAP) Pulse Ox O2 Delivery O2 Flow Rate FiO2 12/18/18 07:19 98.9 83 18 176/93 (120) 92 Room Air 98.9 Lab Values Laboratory Tests Test 12/18/18 07:30 12/18/18 08:00 12/18/18 08:12 White Blood Count 6.7 x10^3/uL (4.0-11.0) Red Blood Count 3.98 x10^6/uL (3.50-5.40) Hemoglobin 13.5 g/dL (12.0-15.5) Hematocrit 38.7 % (36.0-47.0) Mean Corpuscular Volume 97 fL (79-100) Mean Corpuscular Hemoglobin 34 pg (25-35) Mean Corpuscular Hemoglobin Concent 35 g/dL (31-37) Red Cell Distribution Width 12.9 % (11.5-14.5) Platelet Count 214 x10^3/uL (140-400) Neutrophils (%) (Auto) 34 % (31-73) Lymphocytes (%) (Auto) 51 % (24-48) H Monocytes (%) (Auto) 10 % (0-9) H Eosinophils (%) (Auto) 4 % (0-3) H Basophils (%) (Auto) 1 % (0-3) Neutrophils # (Auto) 2.3 x10^3/uL (1.8-7.7) Lymphocytes # (Auto) 3.4 x10^3/uL (1.0-4.8) Monocytes # (Auto) 0.6 x10^3/uL (0.0-1.1) Eosinophils # (Auto) 0.3 x10^3/uL (0.0-0.7) Basophils # (Auto) 0.1 x10^3/uL (0.0-0.2) Sodium Level 138 mmol/L (136-145) Potassium Level 4.0 mmol/L (3.5-5.1) Chloride Level 100 mmol/L (98-107) Carbon Dioxide Level 24 mmol/L (21-32) Anion Gap 14 (6-14) Blood Urea Nitrogen 9 mg/dL (7-20) Creatinine 0.6 mg/dL (0.6-1.0) Estimated GFR (Cockcroft-Gault) 107.6 BUN/Creatinine Ratio 15 (6-20) Glucose Level 129 mg/dL (70-99) H Calcium Level 9.0 mg/dL (8.5-10.1) Total Bilirubin 0.4 mg/dL (0.2-1.0) Aspartate Amino Transferase (AST) 32 U/L (15-37) Alanine Aminotransferase (ALT) 38 U/L (14-59) Alkaline Phosphatase 43 U/L (46-116) L Total Protein 7.4 g/dL (6.4-8.2) Albumin 3.9 g/dL (3.4-5.0) Albumin/Globulin Ratio 1.1 (1.0-1.7) Lipase 89 U/L (73-393) Urine Collection Type Unknown Urine Color Yellow Urine Clarity Hazy Urine pH 5.0 Urine Specific [place] 1.015 Urine Protein Negative mg/dL (NEG-TRACE) Urine Glucose (UA) Negative mg/dL (NEG) Urine Ketones (Stick) Negative mg/dL (NEG) Urine Blood Large (NEG) Urine Nitrite Negative (NEG) Urine Bilirubin Negative (NEG) Urine Urobilinogen Dipstick 0.2 mg/dL (0.2 mg/dL) Urine Leukocyte Esterase Negative (NEG) Urine RBC >40 /HPF (0-2) Urine WBC Occ /HPF (0-4) Urine Squamous Epithelial Cells Occ /LPF Urine Bacteria Few /HPF (0-FEW) Urine Mucus Slight /LPF POC Urine HCG, Qualitative Hcg negative (Negative) Laboratory Tests 12/18/18 07:30 Laboratory Tests 12/18/18 07:30 EKG EKG [] Radiology/Procedures Radiology/Procedures [] Impressions: PROCEDURE: CT ABDOMEN PELVIS WO CONTRAST Study: CT abdomen and pelvis without contrast Indication: Right lower quadrant pain. Comparison: Most recent CT abdomen and pelvis comparison from 09/06/2018. Technique: Helical CT imaging performed of the abdomen and pelvis without the use of intravenous contrast. Sagittal and coronal reformats were obtained. Findings: Lower thorax: Small hiatal hernia. The lower lung boothe are unremarkable. Liver: Low-attenuation liver suggestive of fatty infiltration. No focal abnormality. Gallbladder/Biliary tree: The gallbladder is unremarkable. Normal configuration of the biliary tree. Pancreas: Some dystrophic calcifications at the distal pancreatic body, image 51 series 2, were present on the 12/18/2017 comparison but have slightly increased in number and size. A discrete associated mass is not visualized. Spleen: Similar mild prominence of the spleen relative to priors. Adrenal glands: Unremarkable. Kidneys/Bladder: Previously seen intrarenal stone on the right has migrated and is now at the ureteropelvic junction on image 89 series 2. The stone measures approximately 6 mm and results in moderate pelvocaliectasis. Small intrarenal nonobstructing stone on image 94 series 2 is redemonstrated. No nephrolithiasis seen on the left. The urinary bladder is within normal limits. Stomach/Bowel/Appendix: Radiodense material within the gastric fundus likely ingested debris. Under distention limits evaluation of the mucosa. Nonobstructed small bowel. Colonic diverticulosis without diverticulitis. The appendix is normal. Reproductive organs: Unchanged appearance of the uterus. No suspicious adnexal mass. Lymph Nodes: No pathologically enlarged lymph nodes seen throughout the abdomen, pelvis or inguinal regions. Vasculature: No aneurysmal dilatation. Bones: No acute or destructive osseous abnormality. Calcified disc bulge at L5-S1 as well as facet degeneration with bony neural foraminal encroachment on the right more so than left. Miscellaneous: Fat-containing ventral abdominal wall hernia without complicating features. Impression: 1. Migration of a previously seen 6 mm intrarenal stone on the right which is now lodged at the ureteropelvic junction. This results in moderate pelvocaliectasis. Redemonstrated additional intrarenal stone on the right measuring a few millimeters in size. 2. Redemonstrated dystrophic calcifications at the distal pancreatic body without a well delineated associated mass. Calcifications at this location were present on the 12/18/2017 comparison but have slightly increased in size and number. This could represent a manifestation of a prior parenchymal insult such as trauma or pancreatitis. A neoplastic process such as an islet cell tumor is considered less likely but consider CT follow-up with contrast in 6 to 12 months to document stability. 3. Colonic diverticulosis without diverticulitis. 4. Small hiatal hernia and an unchanged ventral abdominal wall fat-containing hernia. Course & Med Decision Making Course & Med Decision Making Pertinent Labs and Imaging studies reviewed. (See chart for details) [ED course: Evaluation reveals a 48-year-old female with right lower quadrant pain. CT scan revealed a 6 mm UVJ stone as the likely cause of her discomfort. Patient was given IV fluids and Toradol during her stay in the department which did alleviate her symptoms. I discussed this finding with the patient and have suggested she follow with a urologist. I will provide her with Dr. Quezada's contact information. Fill the patient is safe for discharge home at this time.] Dragon Disclaimer Dragon Disclaimer This electronic medical record was generated, in whole or in part, using a voice recognition dictation system. Departure Departure Impression: Primary Impression: Ureteral calculus, right Disposition: 01 HOME, SELF-CARE Condition: IMPROVED Referrals: KEILA HILTON (PCP) DESIRE QUEZADA MD Call the office today to schedule an outpatient appointment. This is the urologist that we discussed Patient Instructions: Diet for Kidney Stones, Kidney Stones Additional Instructions: Return to the emergency department with any new or concerning symptoms Scripts Tamsulosin Hcl (FLOMAX) 0.4 Mg Cap.er.24h 1 CAP PO DAILY, #30 CAP 11 Refills Prov: JD HOUSTON DO 12/18/18 Ondansetron Hcl (ZOFRAN) 4 Mg Tablet 1 TAB PO Q8HRS PRN for NAUSEA, #20 TAB Prov: JD HOUSTON DO 12/18/18 Hydrocodone/Apap 5-325 (NORCO 5-325 TABLET) 1 Each Tablet 1 TAB PO PRN Q6HRS PRN for PAIN, #20 TAB 0 Refills Prov: JD HOUSTON DO 12/18/18 JD HOUSTON DO Dec 18, 2018 07:32
[2018-12-18] MEDS ORDERED: predniSONE 20 MG TABLET PO ONE (07:45)
[2018-12-18] MEDS ORDERED: KETOROLAC 30 MG/ML VIAL. IV ONE (07:45)
[2018-12-18] MEDS ORDERED: ONDANSETRON PF 4 MG/2 ML VIAL. IV ONE (07:45)
[2018-12-18 07:54] LABS: BASO # 0.1 x10^3/uL (0.0-0.2); BASO % 1 % (0-3); EOS # 0.3 x10^3/uL (0.0-0.7); EOS % 4 % (0-3); HEMATOCRIT 38.7 % (36.0-47.0); HEMOGLOBIN 13.5 g/dL (12.0-15.5); LYMPH # 3.4 x10^3/uL (1.0-4.8); LYMPH % 51 % (24-48); MEAN CORPUSCULAR HEMOGLOBIN 34 pg (25-35); MEAN CORPUSCULAR HGB CONC 35 g/dL (31-37); MEAN CORPUSCULAR VOLUME 97 fL (79-100); MONO # 0.6 x10^3/uL (0.0-1.1); MONO % 10 % (0-9); NEUT # 2.3 x10^3/uL (1.8-7.7); NEUT % 34 % (31-73); PLATELET COUNT 214 x10^3/uL (140-400); RED BLOOD COUNT 3.98 x10^6/uL (3.50-5.40); RED CELL DISTRIBUTION WIDTH 12.9 % (11.5-14.5); WHITE BLOOD COUNT 6.7 x10^3/uL (4.0-11.0)
[2018-12-18 08:00] LABS: CREATININE 0.6 mg/dL (0.6-1.0); GFR 107.6
[2018-12-18 08:05] LABS: ALBUMIN 3.9 g/dL (3.4-5.0); ALBUMIN/GLOBULIN RATIO 1.1 (1.0-1.7); TOTAL BILIRUBIN 0.4 mg/dL (0.2-1.0); TOTAL PROTEIN 7.4 g/dL (6.4-8.2)
[2018-12-18 08:21] LABS: BILIRUBIN,URINE NEGATIVE (NEG); COLOR,URINE YELLOW; NITRITE,URINE NEGATIVE (NEG); PROTEIN,URINE NEGATIVE (NEG-TRACE); UROBILINOGEN,URINE 0.2 mg/dL (0.2 mg/dL)
[2018-12-18 08:25] LABS: BACTERIA,URINE FEW /HPF (0-FEW); CLARITY,URINE HAZY; RBC,URINE >40 /HPF (0-2); SQUAMOUS EPITHELIAL CELL,UR OCC /LPF; WBC,URINE OCC /HPF (0-4)
--- NOTE | 2018-12-18 09:14 | RAD ---
Study: CT abdomen and pelvis without contrast Indication: Right lower quadrant pain. Comparison: Most recent CT abdomen and pelvis comparison from 09/06/2018. Technique: Helical CT imaging performed of the abdomen and pelvis without the use of intravenous contrast. Sagittal and coronal reformats were obtained. Findings: Lower thorax: Small hiatal hernia. The lower lung boothe are unremarkable. Liver: Low-attenuation liver suggestive of fatty infiltration. No focal abnormality. Gallbladder/Biliary tree: The gallbladder is unremarkable. Normal configuration of the biliary tree. Pancreas: Some dystrophic calcifications at the distal pancreatic body, image 51 series 2, were present on the 12/18/2017 comparison but have slightly increased in number and size. A discrete associated mass is not visualized. Spleen: Similar mild prominence of the spleen relative to priors. Adrenal glands: Unremarkable. Kidneys/Bladder: Previously seen intrarenal stone on the right has migrated and is now at the ureteropelvic junction on image 89 series 2. The stone measures approximately 6 mm and results in moderate pelvocaliectasis. Small intrarenal nonobstructing stone on image 94 series 2 is redemonstrated. No nephrolithiasis seen on the left. The urinary bladder is within normal limits. Stomach/Bowel/Appendix: Radiodense material within the gastric fundus likely ingested debris. Under distention limits evaluation of the mucosa. Nonobstructed small bowel. Colonic diverticulosis without diverticulitis. The appendix is normal. Reproductive organs: Unchanged appearance of the uterus. No suspicious adnexal mass. Lymph Nodes: No pathologically enlarged lymph nodes seen throughout the abdomen, pelvis or inguinal regions. Vasculature: No aneurysmal dilatation. Bones: No acute or destructive osseous abnormality. Calcified disc bulge at L5-S1 as well as facet degeneration with bony neural foraminal encroachment on the right more so than left. Miscellaneous: Fat-containing ventral abdominal wall hernia without complicating features. Impression: 1. Migration of a previously seen 6 mm intrarenal stone on the right which is now lodged at the ureteropelvic junction. This results in moderate pelvocaliectasis. Redemonstrated additional intrarenal stone on the right measuring a few millimeters in size. 2. Redemonstrated dystrophic calcifications at the distal pancreatic body without a well delineated associated mass. Calcifications at this location were present on the 12/18/2017 comparison but have slightly increased in size and number. This could represent a manifestation of a prior parenchymal insult such as trauma or pancreatitis. A neoplastic process such as an islet cell tumor is considered less likely but consider CT follow-up with contrast in 6 to 12 months to document stability. 3. Colonic diverticulosis without diverticulitis. 4. Small hiatal hernia and an unchanged ventral abdominal wall fat-containing hernia. Electronically signed by: JACOB BARBOUR MD (12/18/2018 9:11 AM) [id number]
[2018-12-18] MEDS ORDERED: HYDR-3164 PO (09:30)
[2018-12-18] MEDS ORDERED: TAMS0.4C97 PO (09:30)
[2018-12-18] MEDS ORDERED: TAMSULOSIN 0.4 MG CAP.ER.24H. PO ONE (09:30)
[2018-12-18] MEDS ORDERED: ONDA4TAB7 PO (09:30)
[2018-12-18 10:00] VITALS: BP 154/76
== END 2018-12-18 10:03 | disposition home or self-care (01) ==
LOC: ER 07:17
DX: N20.1 Calculus of ureter (principal); K57.30 Diverticulosis of large intestine without perforation or abscess without bleeding; K44.9 Diaphragmatic hernia without obstruction or gangrene; J45.909 Unspecified asthma, uncomplicated; Z88.1 Allergy status to other antibiotic agents; Z91.041 Radiographic dye allergy status; Z88.8 Allergy status to other drugs, medicaments and biological substances; Z91.011 Allergy to milk products
CPT/HCPCS: 36415; 74176; 80053; 81001; 81025; 83690; 85025; 96374; 96375; 99285; J1885; J2405; J7512

== ENCOUNTER → 2019-01-09 | Day surgery (SDC) | payer BC ==
[~2019-01-09] MED LIST changes: +HYDROmorphone 2 MG/ML VIAL IV PRN; +IPRATRPIUM/ALBUTEROL 0.5/2.5MG 3 ML NEBU. NEB ONE; +IV RINGERS,LACTATED 1000ML 1,000 ML IV SCH; +LIDOCAINE 2% PF 5 ML VIAL. ONE; +MORPHINE SULFATE 2 MG/ML VIAL. IV PRN; +ONDA4TAB7 PO; +PROCHLORPERAZINE 10 MG/2 ML VIAL. IV PRN; +PROPOFOL 40 ML IV ONE; +TAMS0.4C97 PO; +fentaNYL PF VIAL 100 MCG/2 ML VIAL IV PRN
[2019-01-09 08:30] VITALS: BP 133/82
--- NOTE | 2019-01-10 22:06 | PATHOLOGY ---
[facility] Accession Number: [id number] . 01 Material submitted: . PART A: colon - RIGHT COLON. Modifiers: right PART B: colon - TRANSVERSE COLON. Modifiers: transverse PART C: colon - LEFT COLON. Modifiers: left . 01 Clinical history: . Dysphagia, Crohn's . 02 Diagnosis: A. Colonic mucosa "right colon biopsies": - No obvious diagnostic changes. - There is no evidence of acute cryptitis, granulomas, adenomatous change or malignancy. . B. Colonic mucosa "transverse colon biopsy": - No obvious diagnostic changes. - There is no evidence of acute cryptitis, granulomas, adenomatous change or malignancy. . C. Colonic mucosa "left colon biopsy": - No obvious diagnostic changes. - There is no evidence of acute cryptitis, granulomas, adenomatous change or malignancy. (SHA:caryn; 01/10/2019) AARON/01/10/2019 . 02 Electronically signed: . Omi Cotton MD, Pathologist NPI- [id number] . 01 Gross description: . A. Received in formalin labeled "Vanbeber, Everett, right colon BX," are multiple segments of hickman soft tissue measuring 1.5 x 0.5 x 0.1 cm in aggregate dimensions. The specimen is filtered and entirely submitted in cassette A1. . B. Received in formalin labeled "Vanbeber, Everett, transverse colon BX," are multiple segments of hickman soft tissue measuring 2.1 x 0.5 x 0.1 cm in aggregate dimensions. The specimen is filtered and entirely submitted in cassette B1. . C. Received in formalin labeled "Vanbeber, Everett, left colon BX," are multiple segments of hickman soft tissue measuring 1.6 x 0.4 x 0.1 cm in aggregate dimensions. The specimen is filtered and entirely submitted in cassette C1. (TSD; 01/09/2019) TOB/TOB . 02 Pathologist provided ICD-10: R13.10, K50.90 . 02 CPT . 323031, 897515, [id number] Specimen Comment: A courtesy copy of this report has been sent to Specimen Comment: [phone], . Specimen Comment: Report sent to and Performed at: 01 [facility] [address], [place] [id number] MD Thuan Fong MD Phone: [phone] Performed at: 02 [facility] [address] [place] [id number] MD Pastor Drake MD Phone: [phone]
== END ==
LOC: ENDOS 06:38
PROVIDERS: ATTEND Internal Medicine Gastroenterology
DX: K22.2 Esophageal obstruction (principal); K50.10 Crohn's disease of large intestine without complications; K64.0 First degree hemorrhoids; K57.30 Diverticulosis of large intestine without perforation or abscess without bleeding; K21.9 Gastro-esophageal reflux disease without esophagitis; K63.89 Other specified diseases of intestine; J45.909 Unspecified asthma, uncomplicated; F15.90 Other stimulant use, unspecified, uncomplicated; Z91.041 Radiographic dye allergy status; Z72.89 Other problems related to lifestyle; Z87.891 Personal history of nicotine dependence; Z98.890 Other specified postprocedural states
CPT/HCPCS: 43235; 43450; 45380; 81025; 88305; 94640; J2001; J2704; J7620

== ENCOUNTER 2019-09-24 08:57 | Emergency (ER) | payer BC ==
[~2019-09-24] VITALS: Ht 154.9 cm; Wt 113.1 kg
[~2019-09-24 08:57] MED LIST changes: -HYDROmorphone 2 MG/ML VIAL IV PRN; -IPRATRPIUM/ALBUTEROL 0.5/2.5MG 3 ML NEBU. NEB ONE; -IV RINGERS,LACTATED 1000ML 1,000 ML IV SCH; -LIDOCAINE 2% PF 5 ML VIAL. ONE; -MORPHINE SULFATE 2 MG/ML VIAL. IV PRN; -PROCHLORPERAZINE 10 MG/2 ML VIAL. IV PRN; -PROPOFOL 40 ML IV ONE; -fentaNYL PF VIAL 100 MCG/2 ML VIAL IV PRN
[2019-09-24 09:38] LABS: BILIRUBIN,URINE NEGATIVE (NEG); CLARITY,URINE CLEAR; COLOR,URINE YELLOW; NITRITE,URINE NEGATIVE (NEG); PROTEIN,URINE NEGATIVE (NEG-TRACE); UROBILINOGEN,URINE 0.2 mg/dL (0.2 mg/dL)
[2019-09-24 09:42] LABS: BACTERIA,URINE FEW /HPF (0-FEW); RBC,URINE 0 /HPF (0-2); SQUAMOUS EPITHELIAL CELL,UR MOD /LPF; WBC,URINE OCC /HPF (0-4)
--- NOTE | 2019-09-24 09:55 | RAD ---
Abdominal and Pelvis CT, Without Contrast: History: Right flank pain Comparison: December 18, 2018. Procedure: Axial images are obtained of the abdomen and pelvis, without IV or oral contrast. Oral Contrast: No Findings: Evaluation of solid organs is limited without contrast. Liver: Normal. Spleen: Normal. Pancreas: Calcification in the pancreas as seen previously and could be due to old pancreatitis Adrenal Glands: Normal. Kidneys: Normal. There is no free air or free fluid. There is no lymphadenopathy. The urinary bladder appears normal. There is no pericolonic inflammation identified. The appendix is normal. There is a fat-containing umbilical hernia. Impression: No acute findings. End impression PQRS Compliance Statement: One or more of the following individualized dose reduction techniques were utilized for this examination: 1. Automated exposure control 2. Adjustment of the mA and/or kV according to patient size 3. Use of iterative reconstruction technique Electronically signed by: Praneeth Barker III, MD (09/24/2019 9:52 AM) [id number]
[2019-09-24 10:19] LABS: BASO # 0.1 x10^3/uL (0.0-0.2); BASO % 1 % (0-3); EOS # 0.2 x10^3/uL (0.0-0.7); EOS % 3 % (0-3); HEMATOCRIT 39.2 % (36.0-47.0); HEMOGLOBIN 13.4 g/dL (12.0-15.5); LYMPH # 4.1 x10^3/uL (1.0-4.8); LYMPH % 48 % (24-48); MEAN CORPUSCULAR HEMOGLOBIN 32 pg (25-35); MEAN CORPUSCULAR HGB CONC 34 g/dL (31-37); MEAN CORPUSCULAR VOLUME 94 fL (79-100); MONO # 0.7 x10^3/uL (0.0-1.1); MONO % 9 % (0-9); NEUT # 3.4 x10^3/uL (1.8-7.7); NEUT % 40 % (31-73); PLATELET COUNT 220 x10^3/uL (140-400); RED BLOOD COUNT 4.16 x10^6/uL (3.50-5.40); RED CELL DISTRIBUTION WIDTH 12.6 % (11.5-14.5); WHITE BLOOD COUNT 8.6 x10^3/uL (4.0-11.0)
--- NOTE | 2019-09-24 10:19 | PHYS DOC ---
Past Medical History Past Medical History: Asthma, Other Additional Past Medical Histor: Behcet's DISEASE, crohn's Past Surgical History: Other Additional Past Surgical Histo: TUBES IN EARS, KNEE Smoking Status: Former Smoker Alcohol Use: Rarely Drug Use: None General Adult EDM: Chief Complaint: FLANK PAIN HPI: HPI: Patient is a 49 year old female who presented to ER today for evaluation of right flank pain that radiated both to her umbilical area started last night. Patient has a history of multiple kidney stones in the past, she afraid that she passed another kidney stone. Patient denies any fever, no nausea vomiting. Patient denies any chest pain, no trouble breathing. Patient denies any urinary symptom, no frequency or urgency. Review of Systems: Review of Systems: Constitutional: Denies fever or chills. [] Eyes: Denies change in visual acuity. [] HENT: Denies nasal congestion or sore throat. [] Respiratory: Denies cough or shortness of breath. [] Cardiovascular: Denies chest pain or edema. [] GI: Right side abdominal pain, no nausea, vomiting, bloody stools or diarrhea. [] : Denies dysuria. [] Musculoskeletal: Denies back pain or joint pain. [] Integument: Denies rash. [] Neurologic: Denies headache, focal weakness or sensory changes. [] Endocrine: Denies polyuria or polydipsia. [] Lymphatic: Denies swollen glands. [] Psychiatric: Denies depression or anxiety. [] Heart Score: Risk Factors: Risk Factors: DM, Current or recent (<one month) smoker, HTN, HLP, family history of CAD, obesity. Risk Scores: Score 0 - 3: 2.5% MACE over next 6 weeks - Discharge Home Score 4 - 6: 20.3% MACE over next 6 weeks - Admit for Clinical Observation Score 7 - 10: 72.7% MACE over next 6 weeks - Early Invasive Strategies Allergies: Allergies: Allergies Coded Allergies Type Severity Reaction Last Updated Verified meropenem Allergy Severe skin blisters 03/19/15 Yes Iodine and Iodide Containing Produc Allergy Intermediate 02/26/15 Yes erythromycin base Allergy Intermediate SEE COMMENT 02/18/15 Yes lactose Allergy Intermediate 02/25/15 Yes Physical Exam: PE: Constitutional: Well developed, well nourished, no acute distress, non-toxic appearance. [] HENT: Normocephalic, atraumatic, bilateral external ears normal, oropharynx moist, no oral exudates, nose normal. [] Eyes: PERRLA, EOMI, conjunctiva normal, no discharge. [] Neck: Normal range of motion, no tenderness, supple, no stridor. [] Cardiovascular:Heart rate regular rhythm, no murmur [] Lungs & Thorax: Bilateral breath sounds clear to auscultation [] Abdomen: Bowel sounds normal, soft, no tenderness, no masses, no pulsatile masses. There is a reducible periumbilical hernia. Skin: Warm, dry, no erythema, no rash. [] Back: No tenderness, no CVA tenderness. [] Extremities: No tenderness, no cyanosis, no clubbing, ROM intact, no edema. [] Neurologic: Alert and oriented X 3, normal motor function, normal sensory function, no focal deficits noted. [] Psychologic: Affect normal, judgement normal, mood normal. [] Current Patient Data: Labs: Laboratory Tests Test 09/24/19 09:10 09/24/19 09:15 Urine Collection Type Void Urine Color Yellow Urine Clarity Clear Urine pH 5.0 (<5.0-8.0) Urine Specific [place] 1.020 (1.000-1.030) Urine Protein Negative mg/dL (NEG-TRACE) Urine Glucose (UA) Negative mg/dL (NEG) Urine Ketones (Stick) Negative mg/dL (NEG) Urine Blood Negative (NEG) Urine Nitrite Negative (NEG) Urine Bilirubin Negative (NEG) Urine Urobilinogen Dipstick 0.2 mg/dL (0.2 mg/dL) Urine Leukocyte Esterase Negative (NEG) Urine RBC 0 /HPF (0-2) Urine WBC Occ /HPF (0-4) Urine Squamous Epithelial Cells Mod /LPF Urine Bacteria Few /HPF (0-FEW) Urine Mucus Mod /LPF POC Urine HCG, Qualitative Hcg negative (Negative) Vital Signs: Vital Signs Date Time Temp Pulse Resp B/P (MAP) Pulse Ox O2 Delivery O2 Flow Rate FiO2 09/24/19 09:10 99.0 76 16 149/86 (107) 95 Room Air 99.0 EKG: EKG: [] Radiology/Procedures: Radiology/Procedures: [][facility] [address] [place] [address] IMAGING REPORT Signed PATIENT: APOLINAR MATHIS ACCOUNT: [id number] : 1970 LOCATION: ER AGE: 49 SEX: F EXAM STATUS: REG ER ORD. PHYSICIAN: KERMIT BEAULIEU DO REASON: right flank pain PROCEDURE: CT ABDOMEN PELVIS WO CONTRAST Abdominal and Pelvis CT, Without Contrast: History: Right flank pain Comparison: December 18, 2018. Procedure: Axial images are obtained of the abdomen and pelvis, without IV or oral contrast. Oral Contrast: No Findings: Evaluation of solid organs is limited without contrast. Liver: Normal. Spleen: Normal. Pancreas: Calcification in the pancreas as seen previously and could be due to old pancreatitis Adrenal Glands: Normal. Kidneys: Normal. There is no free air or free fluid. There is no lymphadenopathy. The urinary bladder appears normal. There is no pericolonic inflammation identified. The appendix is normal. There is a fat-containing umbilical hernia. Impression: No acute findings. End impression PQRS Compliance Statement: One or more of the following individualized dose reduction techniques were utilized for this examination: 1. Automated exposure control 2. Adjustment of the mA and/or kV according to patient size 3. Use of iterative reconstruction technique Electronically signed by: Jessica Wei III, MD (09/24/2019 9:52 AM) [id number] DICTATED and SIGNED BY: JESSICA WEI III, MD DATE: 09/24/19 0952 Course & Med Decision Making: Course & Med Decision Making Pertinent Labs and Imaging studies reviewed. (See chart for details) Patient is a 49-year-old female who was evaluated in the ED today due to right- sided flank pain, CT scan did not show kidney stone. Patient has have periumbilical hernia for a long time. It is nothing new for her. Patient feels much better now. We will discharge her home. Dragon Disclaimer: May Disclaimer: This electronic medical record was generated, in whole or in part, using a voice recognition dictation system. Departure Departure Impression: Primary Impression: Acute flank pain Disposition: HOME, SELF-CARE Condition: STABLE Referrals: KEILA HILTON (PCP) follow up with your doctor as needed Patient Instructions: Flank Pain KERMIT BEAULIEU DO September 24, 2019 10:19
[2019-09-24 10:26] LABS: CALCIUM 8.7 mg/dL (8.5-10.1); CREATININE 0.6 mg/dL (0.6-1.0); GFR 107.2
[2019-09-24] MEDS ORDERED: KETOROLAC 30 MG/ML VIAL. IVP ONE (10:30)
[2019-09-24 10:31] LABS: ALBUMIN 3.6 g/dL (3.4-5.0); ALBUMIN/GLOBULIN RATIO 1.2 (1.0-1.7); TOTAL BILIRUBIN 0.3 mg/dL (0.2-1.0); TOTAL PROTEIN 6.7 g/dL (6.4-8.2)
[2019-09-24 11:12] VITALS: BP 147/87
== END 2019-09-24 12:13 | disposition home or self-care (01) ==
LOC: ER 08:57
DX: R10.9 Unspecified abdominal pain (principal); J45.909 Unspecified asthma, uncomplicated; K50.90 Crohn's disease, unspecified, without complications; Z87.891 Personal history of nicotine dependence; Z98.890 Other specified postprocedural states; Z87.442 Personal history of urinary calculi; Z88.1 Allergy status to other antibiotic agents; Z88.6 Allergy status to analgesic agent; Z88.8 Allergy status to other drugs, medicaments and biological substances
CPT/HCPCS: 36415; 74176; 80053; 81001; 81025; 83690; 85025; 96374; 99284; J1885